=== PATIENT | male | born 1960 | race Two or more races ===

== ENCOUNTER 2024-12-19 06:41 | Day surgery (SDC) | payer OTHER ==
[2024-12-19] MEDS ORDERED: FLUMAZENIL 0.5 MG/5 ML ML IV STA (08:11)
[2024-12-19] MEDS ORDERED: GLUCAGON 1 MG VIAL IV STA (08:11)
[2024-12-19] MEDS ORDERED: fentaNYL CITRATE 50 MCG/ML AMPUL IV PUSH ONE (08:15)
[2024-12-19] MEDS ORDERED: ONDANSETRON HCL 2 MG/ML VIAL IV ONE (08:15)
[2024-12-19] MEDS ORDERED: MIDAZOLAM HCL 2 MG/2 ML VIAL IV ONE (08:15)
[2024-12-19] MEDS ORDERED: DIPHENHYDRAMINE HCL 50 MG/ML VIAL 1ML IV ONE (08:15)
== END 2024-12-19 10:40 | disposition home or self-care (01) ==
LOC: AMB-ENDOS 06:41
PROVIDERS: ATTEND Colon & Rectal Surgery
DX: K63.5 Polyp of colon (principal); K57.30 Diverticulosis of large intestine without perforation or abscess without bleeding; Z12.11 Encounter for screening for malignant neoplasm of colon